=== PATIENT | female | born 1965 | race Caucasian/White ===

== ENCOUNTER → 2020-01-31 | Outpatient (CLI) | payer OTHER ==
[~2020-01-31] VITALS: Ht 157.5 cm; Wt 77.1 kg
[~2020-01-31] MED LIST: DORYX MPC120 MG PO
[2020-01-31 11:51] VITALS: BP 141/56
[2020-01-31 12:27] LABS: HEMATOCRIT 36.1 % (37.0-47.0); MCH 29.5 pg (26.0-34.0); MCHC 33.2 g/dL (28.0-37.0); RBC 4.06 mil/uL (4.20-5.00); RDW 14.6 % (10.5-14.5); WBC 5.9 thou/uL (4.0-11.0)
[2020-01-31 12:43] LABS: APTT 26.8 Seconds (24.5-32.8); PROTIME 10.2 Seconds (9.3-11.4)
[2020-01-31 13:52] VITALS: BP 116/60
[2020-01-31 14:12] VITALS: BP 116/81
== END | disposition home or self-care (01) ==
LOC: ULTRA 11:25 → CV 11:25 → SPEC 11:25
PROVIDERS: ATTEND Radiology Vascular & Interventional Radiology
DX: L76.34 Postprocedural seroma of skin and subcutaneous tissue following other procedure (principal); Z53.8 Procedure and treatment not carried out for other reasons; Z98.890 Other specified postprocedural states; Z79.899 Other long term (current) drug therapy; Z90.49 Acquired absence of other specified parts of digestive tract